=== PATIENT | female | born 1995 | race Caucasian/White ===

== ENCOUNTER → 2018-05-20 | Day surgery (SDC) | payer OTHER ==
[~2018-05-20] MED LIST: ACETAMINOPHEN 1000 MG/100 ML IV ONE; BUPIVACAINE 0.5%/EPI 30 ML SDV INJ ONE; DEXAMETHASONE SOD PHOS INJ 4 MG/ML VIAL ONE; FENTANYL CITRATE/PF 100MCG/2 ML INJ ONE; GLYCOPYRROLATE INJ 1MG/ 5 ML SYR ONE; HYDROMORPHONE 2MG/ML 2 MG/ML ML ONE; LIDOCAINE HCL 2% LOCAL INJ 5 ML SDV VIAL INJ ONE; LO LOESTRIN FE1 EACH PO; MIDAZOLAM HCL 2 MG/2 ML VIAL ONE; NEOSTIGMINE 5 MG/5ML SYR ONE; ONDANSETRON HCL INJ 2MG/ML 2ML 2 MG/ML VIAL ONE; PANTOPRAZOLE SO40 MG PO; PROPOFOL IV EMULSION 10 MG/ML 20 ML VIAL ONE; ROCURONIUM BROMIDE 10 MG/ML 5ML VIAL ONE; SEVOFLURANE INHAL SOLN 250 ML PEN BTL ONE; ZYRTEC10 MG PO
--- NOTE | 2018-05-20 10:42 | Pre Op History & Physical ---
DATE OF SURGERY: May 20, 2018. CHIEF COMPLAINT: Recurrent tonsillitis and adenoiditis. HISTORY: This 23-year-old female has 4 to 5 episodes of tonsillitis a year for the past few years. The patient also has loud snoring with questionable apneic episode. The patient's condition has been treated with multiple antibiotics with no improvement. The patient has loud snoring. REVIEW OF SYSTEMS: No recent cardiovascular, respiratory, or GI problems. PAST MEDICAL HISTORY: The patient has no significant medical problems. PAST SURGICAL HISTORY: The patient has no previous surgery. ALLERGIES: SHE HAS NO KNOWN ALLERGIES TO MEDICATIONS. MEDICATION: She is on control pills. SOCIAL HISTORY: She is nonsmoker and nondrinker. FAMILY HISTORY: Noncontributory. PHYSICAL EXAMINATION: VITAL SIGNS: The patient's vital signs were within normal limits. EARS: Showed normal tympanic membranes bilaterally. NASAL: Showed hypertrophy of the inferior turbinate. OROPHARYNX AND ORAL CAVITY: Showed 3+ tonsils bilaterally with exudate. NECK: Showed no lymph node or thyroid palpable. CHEST: Showed good air entry bilaterally. CARDIOVASCULAR: Showed S1 and S2. No murmur noted. ASSESSMENT AND PLAN: Ms. Phelps has recurrent tonsillitis, tonsillar hypertrophy, which has been resistant to conservative therapy. Suggested treatment is tonsillectomy, possible adenoidectomy, and other necessary procedures. The complication of procedure includes, but not limited to bleeding, infection, hyponasal speech, nasal regurgitation of food, airway distress, recurrence of the sore throat, DVT, pulmonary embolism, airway compromise, persistent recurrence of the problem. The alternatives will be continued observation, continued antibiotic therapy, topical nasal steroid therapy, systemic steroid therapy, and decongestant. The patient has elected to undergo surgical procedure. Adriano Velasquez MD DKH/MODL /[id number] cc: Max Morales MD
[2018-05-20 12:50] VITALS: BP 123/82
--- NOTE | 2018-05-20 18:04 | Operative Report ---
DATE OF PROCEDURE: 05/20/2018 SURGEON: Adriano Velasquez MD CHIEF COMPLAINT: Recurrent tonsillitis, tonsillar hypertrophy. POSTOPERATIVE DIAGNOSES: Recurrent tonsillitis, tonsillar hypertrophy. OPERATIVE PROCEDURE: Tonsillectomy. ANESTHESIA: [facility]. INDICATIONS: This 23-year-old female has 4 to 5 episodes of tonsillitis a year for the past few years. The patient also has loud snoring, questionable apneic episode. The patient has been treated with multiple antibiotics with no improvement. On examination, she was noted to have 3+ tonsils bilaterally with exudate. It was decided that tonsillectomy and other necessary procedure will be beneficial for her. DESCRIPTION OF PROCEDURE: The patient was taken to the operating room, put under general anesthesia, endotracheally intubated. The patient was put in Mi position and McIvor mouth gag was inserted. Tonsillar fossa was injected with 0.5% Marcaine with 1:200,000 epinephrine. The right tonsil was retracted medially. A plane was created between the tonsil and tonsillar bed. Dissection was carried down to the inferior pole and tonsil was snared off. Similar procedure was carried on the contralateral side. Hemostasis in tonsillar fossas was achieved using the suction cautery. The adenoid tissue pad was examined, no hypertrophy was noted. Nasopharynx, oropharynx, and oral cavity were irrigated with copious amount of normal saline. The stomach was suctioned out at the end of the procedure. The patient tolerated the above procedure well with estimated blood loss of about 20 mL. She was given 20 mg of Decadron intraoperatively. The patient was able to be transferred to recovery room in stable condition. Adriano Velasquez MD DKH/MODL /[id number] cc: Fredy Dickinson MD
== END | disposition home or self-care (01) ==
LOC: OR 08:04
PROVIDERS: ATTEND Otolaryngology Otolaryngology/Facial Plastic Surgery
DX: J03.91 Acute recurrent tonsillitis, unspecified (principal); J35.02 Chronic adenoiditis
CPT/HCPCS: 42826; 81025; 88304; J0131; J1100; J1170; J2001; J2250; J2405; J2704; J3490